=== PATIENT | male | born 1970 | race Caucasian/White ===

== ENCOUNTER 2021-03-25 08:34 | Emergency (ER) | payer SELFPAY ==
[~2021-03-25] VITALS: Ht 160 cm; Wt 77.1 kg
--- NOTE | 2021-03-25 08:40 | NUR ---
Patient ambulated to bed 5. RN evaluating the patient at bedside.
[2021-03-25 08:42] VITALS: BP 109/68
[2021-03-25 08:46] VITALS: BP 129/82
--- NOTE | 2021-03-25 08:49 | NUR ---
50 YEAR OLD MALE COMPLAINS OF ALLERGIC REACTION X 2 WEEKS. PT STATES THAT HE TOUCHED A PLANT AND HAS BEEN HAVING RASH THROUGHOUT BODY X 2 WEEKS. PT STATES RED/ITCHINESS STARTED X 2 DAYS AGO WITH SWOLLEN EYELIDS. PT DENIES SOB. PT AOX4, BREATHING EVEN AND UNLABORED, SKIN WARM AND DRY. BED IN LOWEST POSITION, LOCKED, BED RAIL UPX1. PMH - DENIES ALLERGIES - NKA
--- NOTE | 2021-03-25 08:52 | NUR ---
DR MARIN AT BEDSIDE EVALUATING PT.
[2021-03-25] MEDS ORDERED: DIPH25TA53 PO (09:06)
[2021-03-25] MEDS ORDERED: PRED20TA5 PO (09:06)
--- NOTE | 2021-03-25 09:11 | NUR ---
Patient discharged with v/s stable. Written and verbal after care instructions about hives given and explained. Patient alert, oriented and verbalized understanding of instructions. Ambulatory with steady gait. All questions addressed prior to discharge. ID band removed. Patient advised to follow up with PMD. Rx of benadryl, deltasone given. Patient educated on indication of medication including possible reaction and side effects. Opportunity to ask questions provided and answered.
[2021-03-25 09:12] VITALS: BP 129/82
== END 2021-03-25 09:11 | disposition home or self-care (01) ==
LOC: MED 08:34
DX: L50.9 Urticaria, unspecified (principal); Z79.899 Other long term (current) drug therapy
CPT/HCPCS: 99283